=== PATIENT | male | born 1950 | race Caucasian/White ===

== ENCOUNTER 2019-04-06 14:04 | Day surgery (SDC) | payer OTHER, MEDICARE ==
[~2019-04-06] VITALS: Ht 193 cm; Wt 136.4 kg
[2019-04-06] MEDS ORDERED: HUMULIN 70100 UNIT/1 SC (14:16)
[2019-04-06] MEDS ORDERED: CYCLOBENZAPRINE10 MG PO (14:16)
[2019-04-06] MEDS ORDERED: GLIPIZIDE10 MG PO (14:17)
[2019-04-06] MEDS ORDERED: HYTRIN10 MG PO (14:17)
[2019-04-06] MEDS ORDERED: PROSCAR5 MG PO (14:17)
[2019-04-06] MEDS ORDERED: TOPROL XL25 MG PO (14:17)
[2019-04-06] MEDS ORDERED: NORVASC10 MG PO (14:18)
[2019-04-06] MEDS ORDERED: LISINOPRIL-HCT1 EAC8 PO (14:18)
[2019-04-06] MEDS ORDERED: LIPITOR40 MG PO (14:18)
[2019-04-06] MEDS ORDERED: GLUCOPHAGE1000 MG PO (14:18)
[2019-04-06 14:49] LABS: BASOPHILS 0.5 % (0-2); EOSINOPHILS 1.8 % (0-7); HEMATOCRIT 40.7 % (42.0-54.0); HEMOGLOBIN 13.8 g/dL (13.5-17.5); IMMATURE GRANULOCYTES 0.1 % (0-5); LYMPHOCYTES 21.7 % (15-50); MCH 29.6 pg (26.0-34.0); MCHC 33.9 g/dL (31.0-37.0); MCV 87.2 fL (80.0-100.0); MEAN PLATELET VOLUME 11.6 fL (7.4-10.4); MONOCYTES 5.4 % (2-11); NEUTROPHILS 70.5 % (40-80); PLATELET COUNT 195 10x3/uL (130-400); RBC 4.67 10x6/uL (4.20-6.10)
[2019-04-06 15:19] LABS: APPEARANCE CLEAR (CLEAR); BILIRUBIN NEGATIVE (NEGATIVE); COLOR YELLOW (YELLOW); GLUCOSE 1000 mg/dL (NEGATIVE); KETONE NEGATIVE (NEGATIVE); NITRITE NEGATIVE (NEGATIVE); PROTEIN NEGATIVE (NEGATIVE); UROBILINOGEN NORMAL (NORMAL)
[2019-04-06 15:20] LABS: BACTERIA FEW /hpf (NONE SEEN); RED CELLS - URINE 25-50 /hpf (0-5); WHITE CELLS - URINE OCC /hpf (0-5)
[2019-04-06 15:26] LABS: ALBUMIN 3.8 g/dL (3.4-5.0); BILIRUBIN - TOTAL 0.31 mg/dL (0.2-1.3); CARBON DIOXIDE 26.8 mmol/L (21.0-32.0); CREATININE - SERUM 1.4 mg/dL (0.6-1.3); POTASSIUM - SERUM 3.8 mmol/L (3.5-5.1); PROTEIN - SERUM 7.4 g/dL (6.4-8.2)
--- NOTE | 2019-04-06 19:15 | NUR ---
PT TRASPORTED TO ROOM BY PREVIOUS SHIFT.
[2019-04-06 19:30] VITALS: BP 191/83
--- NOTE | 2019-04-06 19:40 | NUR ---
ADMITTED TO ROOM FROM ER ALERT AND ORIENTIATED, REPORTS PAIN BETTER SINCE GETTING MORPHINE IN ER, ORIENTIATED TO ROOM CALL LIGHT IN REACH, URINAL GIVEN INSTRUCTED TO VOID IN IT SO NURSE COULD STRAIN URINE VERBALIZED UNDERSTANDING, SEE ASSESMENT
[2019-04-06] MEDS ORDERED: BASAGLAR K100 UNIT/1 SQ (20:11)
[2019-04-06 21:52] VITALS: BP 162/78
[2019-04-06 23:44] VITALS: BP 191/83; BMI 36.6
[2019-04-07 02:25] VITALS: BP 163/74
[2019-04-07 05:40] LABS: BASOPHILS 0.3 % (0-2); EOSINOPHILS 0.3 % (0-7); HEMATOCRIT 40.3 % (42.0-54.0); HEMOGLOBIN 13.8 g/dL (13.5-17.5); IMMATURE GRANULOCYTES 0.1 % (0-5); LYMPHOCYTES 12.6 % (15-50); MCH 29.6 pg (26.0-34.0); MCHC 34.2 g/dL (31.0-37.0); MCV 86.3 fL (80.0-100.0); MEAN PLATELET VOLUME 11.6 fL (7.4-10.4); MONOCYTES 8.1 % (2-11); NEUTROPHILS 78.6 % (40-80); PLATELET COUNT 203 10x3/uL (130-400); RBC 4.67 10x6/uL (4.20-6.10); RDW 13.3 % (11.5-14.5)
[2019-04-07 05:41] LABS: WBC 10.8 10x3/uL (4.8-10.8)
[2019-04-07 05:49] VITALS: BP 180/81
[2019-04-07 06:15] LABS: INR 1.08 (0.85-1.17); PROTIME 13.5 SECONDS (11.6-15.0)
[2019-04-07 06:23] LABS: ANION GAP 12.1 mmol/L (8-16); CARBON DIOXIDE 26.8 mmol/L (21.0-32.0); CREATININE - SERUM 1.5 mg/dL (0.6-1.3); MAGNESIUM - SERUM 1.7 mg/dL (1.8-2.4); PHOSPHOROUS 2.9 mg/dL (2.5-4.9); POTASSIUM - SERUM 3.9 mmol/L (3.5-5.1)
--- NOTE | 2019-04-07 07:30 | NUR ---
ALERT AND ORIENTED, RESTING IN BED. NO C/O PAIN. NO S/S OF ACUTE DISTRESS NOTED. ON ELECTROLYE PROTOCOL, MAGNESIUM 1.7 THIS AM GAVE 1GM IV PER PROTOCOL. SCHEDULED FOR URETERAL STENT PLACEMENT IN LEFT WITH LITHROTRIPSY TODAY. NPO. IV TO LEFT HAND, NS INFUSING @ 125ML/HR. SITE PATENT WITHOUT REDNESS OR SWELLING. PT ACHS Q6 HOURS. PT DENIES ANY NEEDS AT THIS TIME. CALL LIGHT IN REACH. WILL CONTINUE TO MONITOR.
[2019-04-07 08:00] VITALS: Ht 193 cm; Wt 136.4 kg
[2019-04-07 08:59] VITALS: BP 200/95
[2019-04-07 13:25] VITALS: BP 172/79
--- NOTE | 2019-04-07 15:16 | NUR ---
PT TAKEN TO SURGERY VIA BED ACCOMPANIED BY OR STAFF.
[2019-04-07] MEDS ORDERED: FLOMAX0.4 MG PO (16:45)
[2019-04-07] MEDS ORDERED: HYDROCODON-ACE1 EAC7 PO (16:46)
[2019-04-07 17:09] VITALS: BP 181/85
--- NOTE | 2019-04-07 17:24 | NUR ---
RECEIVED PT FROM RECOVERY. VITALS STABLE. NO C/O PAIN. NO S/S OF ACUTE DISTRESS NOTED. PT DENIES ANY NEEDS. WILL CONTINUE TO MONITOR.
--- NOTE | 2019-04-07 17:46 | NUR ---
I have reviewed this patient and I concur with the Shift Assessment completed by the Licensed Practical Nurse today this shift.
--- NOTE | 2019-04-07 18:04 | NUR ---
PT DISCHARGED HOME VIA WHEELCHAIR WITH SPOUSE ACCOMPANIED BY STAFF. DISCONTINUED IV, CATHETER TIP INTACT. NO C/O PAIN. NO S/S OF ACUTE DISTRESS NOTED. WENT OVER DISCHARGE INSTRUCTIONS WITH PATIENT AND SPOUSE, BOTH VERBALIZED UNDERSTANDING. PT DENIES ANY NEEDS.
--- NOTE | 2019-04-08 08:29 | OP ---
PATIENT NAME: PRECIOUS ENAMORADO MEDICAL RECORD: [id number] :54 LOCATION:[id number] ADMISSION DATE:04/06/19 SURGEON: TY MEEK MD DATE OF OPERATION: 04/07/2019 SURGEON: Ty Meek MD ANESTHESIA: General anesthesia by Leo Bender CRNA DIAGNOSIS: Left proximal ureteral stone, 6 mm. PROCEDURES: 1. Left ESWL times 409 shocks. 2. Cystoscopy and left ureteral stent insertion of 6-Sao Tomean x 26 cm with string attached. FINDINGS: Radiodense left proximal ureteral stone. BLOOD LOSS: None. CLINICAL HISTORY: This is a 68-year-old male who came to the Emergency Room with acute left flank pain for one day. CT scan showed a 6-mm left proximal ureteral stone. He was admitted for pain control. Now, he comes to have the stone treated with lithotripsy. He was given Ancef on-call to the OR. DESCRIPTION OF PROCEDURE: The patient was given induction of general anesthesia in supine position. He was then placed into dorsal lithotomy position and prepped and draped. While we were preparing the patient for cystoscopy, the stone was targeted in 2 planes and lithotripsy had commenced. When we finally halted the lithotripsy to insert the stent, the patient had already been given 409 shocks and the stone was seen to have started to break up. A 21-Sao Tomean cystoscope with 30-degree lens was used for visualization. He had normal penile urethra. Prostate showed obstructive lateral lobes. No significant median lobe was seen, but he does have a tall bladder neck. Going into the bladder, he has a moderately trabeculated bladder. Single ureteral orifices were seen on each side. The left ureteral orifice was entered with a Sensor wire. The wire was then passed up into the renal pelvis. Passage of the wire disrupted the stone and we could no longer find the stone. Over the wire, we inserted a 6-Sao Tomean x 26-cm ureteral stent. Once the stent was in correct position, the wire was completely withdrawn. The distal end of stent was pushed into the bladder using a pusher. The bladder was then emptied through the cystoscope sheath and the scope was removed. The string on the distal end of the stent was maintained and it hangs out of the urethra. It was tied to itself in a knot and cut shorter. We attempted to find the stone fragments again, but we were unsuccessful in finding anything that we could target. Therefore, we stopped the procedure at this point. The patient was awakened and brought to the recovery room. He can go home today with a prescription for Flomax and Faber 5/325, times 28 tablets. I will see him in follow up in 2 weeks' time with a KUB. If there are no visible stone fragments at that point, then I will remove the stent. TRANSINT:[id number] Voice Confirmation ID: [id number] DOCUMENT ID: [id number] OPERATIVE REPORT [id number] PRECIOUS ENAMORADO, TY Ramirez MD at 0829 CC: [id number] DICTATION DATE: 04/07/19 162 MEAT PROCESS WORKER: 04/07/191927 DIS IN 04/07/19 [facility] [address] [place] [address]
== END 2019-04-07 18:13 | disposition home or self-care (01) ==
LOC: D.ER 14:04 → D.OPS 14:04 → D.ER 18:33 → D.MS 18:33 → D.ER 19:10 → EDSTATUS 04-07 14:00 → D.OPS 04-07 18:13 → D.MS 04-07 18:13
PROVIDERS: Family Medicine; ATTEND Internal Medicine Nephrology
DX: N13.2 Hydronephrosis with renal and ureteral calculous obstruction (principal); I10 Essential (primary) hypertension; N17.9 Acute kidney failure, unspecified; E11.9 Type 2 diabetes mellitus without complications

== ENCOUNTER 2019-04-26 00:59 | Inpatient (IN) | payer OTHER, MEDICARE ==
[~2019-04-26] VITALS: Ht 193 cm; Wt 136.4 kg
[~2019-04-26 00:59] MED LIST: BASAGLAR K100 UNIT/1 SQ; CYCLOBENZAPRINE10 MG PO; FLOMAX0.4 MG PO; GLIPIZIDE10 MG PO; GLUCOPHAGE1000 MG PO; HUMULIN 70100 UNIT/1 SC; HYDROCODON-ACE1 EAC7 PO; HYTRIN10 MG PO; LIPITOR40 MG PO; LISINOPRIL-HCT1 EAC8 PO; NORVASC10 MG PO; PROSCAR5 MG PO; TOPROL XL25 MG PO
[2019-04-26 01:44] LABS: BASOPHILS 0.4 % (0-2); EOSINOPHILS 0.7 % (0-7); HEMATOCRIT 37.1 % (42.0-54.0); HEMOGLOBIN 12.8 g/dL (13.5-17.5); IMMATURE GRANULOCYTES 0.2 % (0-5); LYMPHOCYTES 12.7 % (15-50); MCH 29.4 pg (26.0-34.0); MCHC 34.5 g/dL (31.0-37.0); MCV 85.1 fL (80.0-100.0); MEAN PLATELET VOLUME 11.3 fL (7.4-10.4); MONOCYTES 9.9 % (2-11); NEUTROPHILS 76.1 % (40-80); PLATELET COUNT 182 10x3/uL (130-400); RBC 4.36 10x6/uL (4.20-6.10); WBC 11.3 10x3/uL (4.8-10.8)
[2019-04-26 01:55] LABS: APPEARANCE HAZY (CLEAR); APTT 26.1 SECONDS (22.8-39.4); BILIRUBIN NEGATIVE (NEGATIVE); COLOR YELLOW (YELLOW); GLUCOSE 1000 mg/dL (NEGATIVE); INR 1.09 (0.85-1.17); KETONE NEGATIVE (NEGATIVE); NITRITE POSITIVE (NEGATIVE); PROTEIN 2+ mg/dL (NEGATIVE); PROTIME 13.6 SECONDS (11.6-15.0); SPECIFIC GRAVITY 1.005 (1.005-1.020); UROBILINOGEN NORMAL (NORMAL)
[2019-04-26 01:56] LABS: BACTERIA MODERATE /hpf (NONE SEEN); EPITHELIAL CELLS 0-5 /hpf (0-5)
[2019-04-26 01:59] LABS: ALBUMIN 3.3 g/dL (3.4-5.0); ALKALINE PHOSPHATASE 72 U/L (46-116); ALT (SGPT) 28 U/L (10-68); BILIRUBIN - TOTAL 0.61 mg/dL (0.2-1.3); CALC OSMOLALITY 287 mosm/kg (275-300); CALCIUM 8.3 mg/dL (8.5-10.1); CARBON DIOXIDE 28.4 mmol/L (21.0-32.0); CHLORIDE - SERUM 103 mmol/L (98-107); CREATININE - SERUM 0.9 mg/dL (0.6-1.3); GLUCOSE 254 mg/dL (74-106); POTASSIUM - SERUM 3.3 mmol/L (3.5-5.1); PROTEIN - SERUM 7.1 g/dL (6.4-8.2); SODIUM 139 mmol/L (136-145); UDS - AMPHET NEGATIVE QUAL (NEGATIVE); UDS - BARB NEGATIVE QUAL (NEGATIVE); UDS - BENZO NEGATIVE QUAL (NEGATIVE); UDS - COCAINE NEGATIVE QUAL (NEGATIVE); UDS - OPIATE POSITIVE QUAL (NEGATIVE); UDS - PCP NEGATIVE QUAL (NEGATIVE); UDS - THC NEGATIVE QUAL (NEGATIVE); UREA NITROGEN 14 mg/dL (7-18); eGFR NON AFRICAN AMERICAN 89 mL/min (90-120)
--- NOTE | 2019-04-26 02:05 | NUR ---
PT LEFT ED VIA STRETCHER FOR CT.
[2019-04-26 02:06] LABS: LIPASE 93 U/L (73-393); PRO BNP 90 pg/mL (0-125)
[2019-04-26 02:07] LABS: TROPONIN-I < 0.017 ng/mL (0.000-0.060)
--- NOTE | 2019-04-26 02:23 | NUR ---
PT RETURNED FROM CT VIA STRETCHER.
--- NOTE | 2019-04-26 02:40 | NUR ---
BLOOD CULTURES OBTAINED BY LAB AND RN
--- NOTE | 2019-04-26 03:30 | NUR ---
RECEIVED PT FROM ER VIA STRETCHER. ALERT AND ORIENTED X4 BUT FORGETFUL. POOR HISTORIAN. RESP EVEN AND NONLABORED. REPORTS PAIN IN ABD AND BACK 6. DENIES NEED FOR PAIN MED AT THIS TIME. REPORTS PAINFUL URINATION. NO TELEMETRY AVAILABLE AT THIS TIME. NS @ 125 ML/HR INFUSING IN LT HAND WITHOUT DIFF. GEN WEAKNESS NOTED. V/S STABLE BUT STILL HAS TEMP. INFORMED OF NPO STATUS AND HE VERBALIZED UNDERSTANDING. CL IN REACH.
[2019-04-26 04:01] VITALS: BP 157/77; Ht 193 cm; Wt 136.4 kg
[2019-04-26 06:06] LABS: BASOPHILS 0.2 % (0-2); EOSINOPHILS 0.2 % (0-7); HEMATOCRIT 35.3 % (42.0-54.0); HEMOGLOBIN 12.1 g/dL (13.5-17.5); IMMATURE GRANULOCYTES 0.2 % (0-5); LYMPHOCYTES 9.6 % (15-50); MCH 29.4 pg (26.0-34.0); MCHC 34.3 g/dL (31.0-37.0); MCV 85.9 fL (80.0-100.0); MONOCYTES 8.8 % (2-11); PLATELET COUNT 196 10x3/uL (130-400); RBC 4.11 10x6/uL (4.20-6.10); RDW 13.1 % (11.5-14.5)
[2019-04-26 06:26] LABS: CALC OSMOLALITY 287 mosm/kg (275-300); CALCIUM 8.4 mg/dL (8.5-10.1); CARBON DIOXIDE 26.8 mmol/L (21.0-32.0); CHLORIDE - SERUM 104 mmol/L (98-107); CREATININE - SERUM 0.9 mg/dL (0.6-1.3); GLUCOSE 256 mg/dL (74-106); MAGNESIUM - SERUM 1.6 mg/dL (1.8-2.4); PHOSPHOROUS 2.8 mg/dL (2.5-4.9); POTASSIUM - SERUM 3.2 mmol/L (3.5-5.1); SODIUM 139 mmol/L (136-145); UREA NITROGEN 14 mg/dL (7-18); eGFR NON AFRICAN AMERICAN 89 mL/min (90-120)
--- NOTE | 2019-04-26 07:55 | NUR ---
PT RESTING IN BED MOANING. PT VOICES "FEVER IS BACK UP AND I FEEL IT". REASSESSED PT TEMP. 103.2 BP 190/82 HR 108. ADMINISTERED APRESOLINE PER MD ORDERS. NOTIFIED ARIS SOSA OF CURRENT VITALS AND TYLENOL SUPPOSITORY BEING ADMINISTERED AT 0640. STATES TO PLACE ICEPACKS TO ARM PITS AND GROIN. THIS DONE WELL PLACING COOL RAGS TO FOREHEAD.
--- NOTE | 2019-04-26 09:00 | NUR ---
REASSESSED PT TEMP AND BP. T-103.2, BP 142/78 AT THIS TIME. WILL CONTINUE TO MONITOR
[2019-04-26 09:38] VITALS: BP 206/89
[2019-04-26 12:11] VITALS: BP 189/90
--- NOTE | 2019-04-26 12:42 | MORECARE ---
CASE MANAGEMENT DISCHARGE SUMMARY PATIENT: PRECIOUS ENAMORADO UNIT: [id number] ADM DATE: 04/26/19 AGE: 69 : 52 SEX: M ROOM/BED: D.2204 AUTHOR: DK ARMSTRONG PHYSICIAN: REFERRING PHYSICIAN: LEYLA POSADAS DO DATE OF SERVICE: 04/26/19 Discharge Plan Patient Name: PRECIOUS ENAMORADO Facility: [facility]:[place] : 1950 Planned Disposition: Anticipated Discharge Date: Discharge Date: Expected LOS: Initial Reviewer: [email or web address] Initial Review Date: 04/26/2019 Generated: 04/26/19 1:41 pm Comments DCP- Discharge Planning Updated by [email or web address]: Dana Quiroz on 04/26/19 11:[address] PATIENT BEING TRANSFERED TO [facility] FOR UROLOGY Patient Name: PRECIOUS ENAMORADO Page [id number] at 1242 All edits/amendments must be made on the electronic document DICTATION DATE: 04/26/19 1241 QUALITY SPECIALIST: JIMMY 04/26/19 1241 RPT#: [id number] DC DATE: STATUS: ADM IN [facility] [address] [place] [address] END OF REPORT
--- NOTE | 2019-04-26 13:03 | MORECARE ---
CASE MANAGEMENT DISCHARGE SUMMARY PATIENT: PRECIOUS ENAMORADO UNIT: [id number] ADM DATE: 04/26/19 AGE: 69 : 52 SEX: M ROOM/BED: D.2204 AUTHOR: DK ARMSTRONG PHYSICIAN: REFERRING PHYSICIAN: LEYLA POSADAS DO DATE OF SERVICE: 04/26/19 Discharge Plan Patient Name: PRECIOUS ENAMORADO Facility: [facility]:[place] : 1950 Planned Disposition: Anticipated Discharge Date: Discharge Date: Expected LOS: Initial Reviewer: [email or web address] Initial Review Date: 04/26/2019 Generated: 04/26/19 2:03 pm Comments DCP- Discharge Planning Updated by [email or web address]: Dana Quiroz on 04/26/19 11:[address] CALLED EASY ADMIT TO START THE PROCESS TO TRANSFER PATIENT TO [facility] SPOKE WITH YESI URENA FACESHEET DCP- Discharge Planning Updated by [email or web address]: Dana Quiroz on 04/26/19 11:[address] PATIENT BEING TRANSFERED TO [facility] FOR UROLOGY Last DP export: 04/26/19 11:42 a Patient Name: PRECIOUS ENAMORADO Page [phone] at 1303 All edits/amendments must be made on the electronic document DICTATION DATE: 04/26/19 1303 ACTUARIAL CLERK: JIMMY 04/26/19 1303 RPT#: [id number] DC DATE: STATUS: ADM IN [facility] [address] [place] [address] END OF REPORT
[2019-04-26 16:51] VITALS: BP 172/77
--- NOTE | 2019-04-27 09:37 | MORECARE ---
CASE MANAGEMENT DISCHARGE SUMMARY PATIENT: PRECIOUS ENAMORADO UNIT: [id number] ADM DATE: 04/26/19 AGE: 69 : 52 SEX: M ROOM/BED: D.2204 AUTHOR: DK ARMSTRONG PHYSICIAN: REFERRING PHYSICIAN: LEYLA POSADAS DO DATE OF SERVICE: 04/27/19 Discharge Plan Patient Name: PRECIOUS ENAMORADO [facility] : 1950 Planned Disposition: Anticipated Discharge Date: Discharge Date: 04/26/2019 Expected LOS: 0 Initial Reviewer: [email or web address] Initial Review Date: 04/26/2019 Generated: 04/27/19 10:37 am Comments DCP- Discharge Planning Updated by [email or web address]: Dana Quiroz on 04/26/19 11:[address] CALLED EASY ADMIT TO START THE PROCESS TO TRANSFER PATIENT TO [facility] SPOKE WITH YESI URENA FACESFLAQUITO DCP- Discharge Planning Updated by [email or web address]: Dana Quiroz on 04/26/19 11:[address] PATIENT BEING TRANSFERED TO [facility] FOR UROLOGY Last DP export: 04/26/19 12:03 p Patient Name: PRECIOUS ENAMORADO Page [phone] at 0937 All edits/amendments must be made on the electronic document DICTATION DATE: 04/27/19936 WOODWIND REEDS CUTTER: JIMMY 04/27/1937 RPT#: [id number] DC DATE:04/26/19 STATUS: DIS IN [facility] [address] [place] [address] END OF REPORT
--- NOTE | 2019-05-02 03:16 | NUR ---
ROCEPHIN INFUSION COMPLETE AT THIS TIME.
== END 2019-04-26 19:15 | disposition short-term general hospital (02) | DRG 872 ==
LOC: D.ER 00:59 → D.MS 02:38
PROVIDERS: Family Medicine; ADMIT Family Medicine; ATTEND Family Medicine
DX: A41.9 Sepsis, unspecified organism (principal); N39.0 Urinary tract infection, site not specified; E87.6 Hypokalemia; E83.42 Hypomagnesemia; I10 Essential (primary) hypertension; E11.9 Type 2 diabetes mellitus without complications